=== PATIENT | male | born 1935 | race Hispanic/Latino ===

== ENCOUNTER 2017-05-21 10:19 | Observation (INO) | payer MEDICARE ==
[2017-05-17 13:15] LABS: BASOPHILS # (AUTO) 0.1 (0.0-0.1); BASOPHILS % 0.7 % (0.0-1.0); EOSINOPHILS # (AUTO) 0.3 (0.0-0.4); EOSINOPHILS % 2.7 % (0.0-6.0); HEMATOCRIT 45.5 % (38.2-49.6); LYMPHOCYTES # (AUTO) 1.3 (1.0-3.2); LYMPHOCYTES % 13.9 % (18.0-39.1); MEAN CORPUSCULAR HEMOGLOBIN 33.2 pg (28-32); MEAN CORPUSCULAR VOLUME 100.7 fL (81-99); MONOCYTES # (AUTO) 0.8 (0.2-0.8); MONOCYTES % 8.8 % (4.4-11.3); NEUTROPHILS # (AUTO) 6.7 (2.1-6.9); NEUTROPHILS % 73.6 % (38.7-80.0); PLATELET COUNT 325 x10e3/uL (140-360); RED BLOOD COUNT 4.52 x10e6/uL (4.3-5.7); RED CELL DISTRIBUTION WIDTH 13.4 % (11.7-14.4)
[2017-05-17 13:34] LABS: BLOOD UREA NITROGEN 21 mg/dL (7-26); BUN/CREATININE RATIO 21 (6-25); CALCIUM 9.2 mg/dL (8.4-10.2); CARBON DIOXIDE 29 mmol/L (22-29); CHLORIDE 103 mmol/L (98-107); CREATININE, SERUM 1.01 mg/dL (0.72-1.25); EST GLOMERULAR FILTRATION RATE > 60 ML/MIN (60-); GLUCOSE 99 mg/dL (74-118); SODIUM 141 mmol/L (136-145)
--- NOTE | 2017-05-17 13:38 | Diagnostic Imaging Report ---
PROCEDURE: Frontal and lateral views of the chest. COMPARISON: None. INDICATIONS: PRE OPERATIVE CHEST X-RAY FOR TURP, UROLOGY SURGERY FINDINGS: Lines/tubes: None. Lungs: The lungs are well inflated. Mild bibasilar atelectasis. There is no evidence of pneumonia or pulmonary edema. Pleura: There is no pleural effusion or pneumothorax. Heart and mediastinum: Tortuous aorta. The heart and the mediastinum are otherwise normal. Bones: No acute bony abnormality. IMPRESSION: No acute cardiopulmonary disease. Dictated by: Channing Cruz M.D. on 05/17/2017 at 13:44 Electronically approved by: Channing Cruz M.D. on 05/17/2017 at 13:44
[~2017-05-21] VITALS: Ht 167.6 cm; Wt 73.5 kg
[~2017-05-21 10:19] MED LIST: AMIODARONE HCL200 MG PO; CARVEDILOL3.125 MG PO; CLONAZEPAM0.5 MG PO; CLOPIDOGREL75 MG PO; FLOMAX0.4 MG PO
[2017-05-21] MEDS ORDERED: CEFTRIAXONE SOD 1 GM/NS 50 ML 50 ML IV ONE (10:20)
[2017-05-21] MEDS ORDERED: CLONAZEPAM 0.5 MG TAB PO SCH (15:00)
[2017-05-21] MEDS ORDERED: LEVOFLOXACIN 500 MG TAB PO SCH (15:00)
[2017-05-21] MEDS ORDERED: SODIUM CHLORIDE 0.45% 1,000 ML IV ONE (15:00)
[2017-05-21] MEDS ORDERED: ACETAMINOPHEN/CODEINE 300MG - 30MG TAB PO PRN (15:15)
[2017-05-21] MEDS ORDERED: CLONAZEPAM 0.5 MG TAB PO PRN (15:15)
[2017-05-21 15:34] VITALS: BP 131/64
[2017-05-21 16:09] VITALS: BP 131/64
--- NOTE | 2017-05-21 16:25 | Operative Report ---
DATE OF PROCEDURE: May 21, 2017 PREOPERATIVE DIAGNOSIS: Urinary retention. POSTOPERATIVE DIAGNOSES 1. Urinary retention. 2. Large bladder stone. OPERATIVE PROCEDURE PERFORMED: Cystolitholapaxy and transurethral resection of the prostate. ANESTHESIA: General. ESTIMATED BLOOD LOSS: 100 mL. INDICATIONS: Mr. Chance is a 81-year-old gentleman with approximately one month history of urinary retention which failed conservative management. He now presents for definitive surgical management of this problem. PROCEDURE IN DETAIL: The patient was brought into the operating room and placed in the supine position. After the administration of general anesthesia, he was placed in the dorsal lithotomy position and prepped and draped in the usual sterile fashion. Cystourethroscopy was performed using 20-Japanese cystoscope. The anterior and posterior urethra were noted to be normal. 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 The bladder was entered with mild difficulty. Upon entrance into the bladder, the patient was noted to have a large bladder stone approximately 2.5 cm in diameter. There was grade 2-3 trabeculation throughout with cellule formation. A mucosal lesion is identified. Decision was made to proceed with blasting of the stone first. The Holmium laser was used to break the stone into smaller fragments which were then subsequently removed and sent to pathology for microscopic analysis. was left full and the bladder was left full and then the cystoscope and the sheath were removed. A 26-Japanese resectoscope sheath was then placed in a retrograde fashion and the MediWound resectoscope was used to perform the procedure. Beginning at the 1 o'clock position and proceeding down to possibly the 6 o'clock position all the adenomatous tissue between the bladder neck and the verumontanum was resected down to the level of the capsule. While there were a couple of areas where the capsule was penetrated, there was no gross perforation of the capsule noted. Hemostasis was obtained using electrocautery device. The median lobe was also taken down sharply using the resectoscope. All of these chips were sent to pathology for microscopic analysis as a separate specimen. Given the size of the gland and the patient's age, no attempt was made to completely resect the gland and very little of the right prostatic lobe was resected. The surface, however, was fulgurated using electrocautery device. Visualization from the verumontanum revealed opening of the bladder neck such that the patient should be able to void. The bladder was then left full once all the chips were removed and hemostasis obtained. The sheath was removed and the patient was noted to have a fair urinary flow with Crede. A 24-Japanese 3-way Crede catheter was then placed in retrograde fashion. The balloon inflated with approximately 4 mL of sterile water. The urinary efflux was noted to be blood tinged. The patient was started on continuous bladder irrigation and a Salazar catheter placed to gravity drainage. Anesthesia was reversed and the patient was transferred to a bed and taken to the post anesthesia care unit in good condition. Of note, the needle and the instrument count were correct at the conclusion of the case. Job#: [id number]
[2017-05-21] MEDS: AMIODARONE HCL 200 MG TAB PO SCH (17:50)
[2017-05-21] MEDS: CARVEDILOL 3.125 MG TAB PO SCH (17:50)
[2017-05-21] MEDS ORDERED: PROPOFOL IV EMULSION 10 MG/ML 20 ML VIAL ONE (18:21)
[2017-05-21] MEDS ORDERED: DEXAMETHASONE SOD PHOS INJ 4 MG/ML VIAL ONE (18:21)
[2017-05-21] MEDS ORDERED: GLYCOPYRROLATE INJ 1MG/ 5 ML SYR ONE (18:21)
[2017-05-21] MEDS ORDERED: ONDANSETRON HCL INJ 2 MG/ML VIAL ONE (18:21)
[2017-05-21] MEDS ORDERED: NEOSTIGMINE 5 MG/5ML SYR ONE (18:21)
[2017-05-21] MEDS ORDERED: ROCURONIUM BROMIDE 10 MG/ML 5ML VIAL ONE (18:21)
[2017-05-21] MEDS ORDERED: MIDAZOLAM HCL 2 MG/2 ML VIAL ONE (18:32)
[2017-05-21] MEDS ORDERED: FENTANYL CITRATE/PF 100MCG/2 ML INJ ONE (18:32)
[2017-05-21 20:00] VITALS: BP 131/64
[2017-05-21] MEDS ORDERED: TAMSULOSIN HCL 0.4 MG CAP PO SCH (21:00)
[2017-05-22] VITALS: BP 154/79
[2017-05-22 04:00] VITALS: BP 142/70
[2017-05-22 06:21] LABS: ANION GAP 10.3 mmol/L (8-16); BLOOD UREA NITROGEN 18 mg/dL (7-26); BUN/CREATININE RATIO 17 (6-25); CALCIUM 8.3 mg/dL (8.4-10.2); CARBON DIOXIDE 29 mmol/L (22-29); CHLORIDE 101 mmol/L (98-107); CREATININE, SERUM 1.06 mg/dL (0.72-1.25); EST GLOMERULAR FILTRATION RATE > 60 ML/MIN (60-); GLUCOSE 136 mg/dL (74-118); POTASSIUM 4.3 mmol/L (3.5-5.1); SODIUM 136 mmol/L (136-145)
[2017-05-22 07:58] VITALS: BP 133/66
[2017-05-22] MEDS: AMIODARONE HCL 200 MG TAB PO SCH (09:27)
[2017-05-22] MEDS: CARVEDILOL 3.125 MG TAB PO SCH (09:27)
[2017-05-22 11:31] VITALS: BP 115/59
[2017-05-22] MEDS ORDERED: LEVAQUIN500 MG PO (13:42)
[2017-05-22] MEDS ORDERED: COLACE100 MG PO (13:42)
[2017-05-22 15:41] VITALS: BP 162/79
== END 2017-05-22 15:55 | disposition home or self-care (01) ==
LOC: OR 10:19 → IMCU 14:32
PROVIDERS: ADMIT Urology; ATTEND Urology
DX: N21.0 Calculus in bladder (principal); N40.1 Benign prostatic hyperplasia with lower urinary tract symptoms; R33.8 Other retention of urine; I48.91 Unspecified atrial fibrillation; I10 Essential (primary) hypertension; I25.10 Atherosclerotic heart disease of native coronary artery without angina pectoris; Z01.810 Encounter for preprocedural cardiovascular examination; Z01.812 Encounter for preprocedural laboratory examination; Z01.818 Encounter for other preprocedural examination; Z87.891 Personal history of nicotine dependence; I25.2 Old myocardial infarction; Z79.02 Long term (current) use of antithrombotics/antiplatelets; Z88.6 Allergy status to analgesic agent
CPT/HCPCS: 36415 ×2; 52318; 52601; 71020; 80048 ×2; 85025; 88300; 88305; 93005; G0378 ×2; J0696; J1100; J2250; J2405